=== PATIENT | female | born 1955 | race Caucasian/White ===

== ENCOUNTER → 2017-04-24 | Outpatient (CLI) | payer BC ==
[2006-04-10 09:50] VITALS: TEMP 97.6
[~2017-04-24] MED LIST: CLARITIN 1010 MG/TAB PO; EFFEXOR-XR150 MG PO; HUMIRA40 MG/0.8 SQ; K-TAB10 PO; LASIX 20MG TABL20 MG PO; PRILOSEC 20MG20 MG PO; VITAMIND3 5000 PO
== END ==
LOC: MC.RAD 14:00
DX: Z12.31 Encounter for screening mammogram for malignant neoplasm of breast (principal)

== ENCOUNTER 2017-05-20 06:27 | Day surgery (SDC) | payer BC ==
[2017-05-20] VITALS (7 sets, daily range): BP systolic 95–164; BP diastolic 56–84; PULSE 64–86; TEMP 98.4
[~2017-05-20] VITALS: Ht 154.9 cm; Wt 65.6 kg
[2017-05-20] MEDS ORDERED: HUMIRA40 MG/0.8 SQ (07:43)
[2017-05-20] MEDS ORDERED: EFFEXOR-XR150 MG PO (07:45)
[2017-05-20] MEDS ORDERED: LASIX 20MG TABL20 MG PO (07:45)
[2017-05-20] MEDS ORDERED: VITAMIND3 5000 PO (07:45)
[2017-05-20] MEDS ORDERED: K-TAB10 PO (07:45)
[2017-05-20] MEDS ORDERED: PRILOSEC 20MG20 MG PO (07:46)
[2017-05-20] MEDS ORDERED: CLARITIN 1010 MG/TAB PO (07:46)
== END 2017-05-20 10:00 | disposition home or self-care (01) ==
LOC: SDCO 06:27
DX: Z12.11 Encounter for screening for malignant neoplasm of colon (principal); K62.1 Rectal polyp; E73.9 Lactose intolerance, unspecified; M17.12 Unilateral primary osteoarthritis, left knee; Z90.710 Acquired absence of both cervix and uterus
CPT/HCPCS: OP; J2250; J3010; J7030

== ENCOUNTER → 2018-04-29 | Outpatient (CLI) | payer BC | LOC: MC.RAD 11:07 | DX: Z12.31 Encounter for screening mammogram for malignant neoplasm of breast (principal) ==

== ENCOUNTER → 2019-06-16 | Outpatient (CLI) | payer BC | LOC: MC.RAD 06-15 09:15 | DX: Z12.31 Encounter for screening mammogram for malignant neoplasm of breast (principal); N63.10 Unspecified lump in the right breast, unspecified quadrant; N63.20 Unspecified lump in the left breast, unspecified quadrant ==

== ENCOUNTER → 2020-06-21 | Outpatient (CLI) | payer BC | LOC: MC.RAD 13:00 | DX: Z12.31 Encounter for screening mammogram for malignant neoplasm of breast (principal) ==

== ENCOUNTER → 2021-07-16 | Outpatient (CLI) | payer MEDICARE | LOC: MC.RAD 12:50 | DX: Z12.31 Encounter for screening mammogram for malignant neoplasm of breast (principal) ==

== ENCOUNTER 2022-03-14 11:07 | Emergency (ER) | payer MEDICARE ==
[~2022-03-14] VITALS: Ht 154.9 cm; Wt 69.1 kg
[2022-03-14 11:15] VITALS: TEMP 99.1
[2022-03-14] MEDS ORDERED: EPIPEN 2-PAK1 MG/ML IM (12:29)
[2022-03-14 12:38] VITALS: BP 109/58; PULSE 90
== END 2022-03-14 12:41 | disposition home or self-care (01) ==
LOC: COL.ER 11:07
DX: L50.0 Allergic urticaria (principal)
CPT/HCPCS: J1100; J1200; J7120

== ENCOUNTER 2022-03-16 15:06 | Emergency (ER) | payer MEDICARE ==
[~2022-03-16] VITALS: Ht 154.9 cm; Wt 69.1 kg
[~2022-03-16 15:06] MED LIST changes: +EPIPEN 2-PAK1 MG/ML IM
[2022-03-16 15:19] VITALS: TEMP 98.5
[2022-03-16] MEDS ORDERED: PREDNISONE20 MG PO (18:07)
[2022-03-16 18:18] VITALS: BP 110/73; PULSE 86
== END 2022-03-16 18:18 | disposition home or self-care (01) ==
LOC: COL.ER 15:06
DX: T78.3XXA Angioneurotic edema, initial encounter (principal)
CPT/HCPCS: J1200; J2930; J7030; J7512

== ENCOUNTER → 2023-11-25 | Outpatient (CLI) | payer MEDICARE ==
[~2023-11-25] MED LIST changes: +PREDNISONE20 MG PO
== END ==
LOC: MC.RAD 10:49
DX: Z12.31 Encounter for screening mammogram for malignant neoplasm of breast (principal)